=== PATIENT | male | born 1965 | race Caucasian/White ===

== ENCOUNTER 2019-11-18 18:33 | Emergency (ER) | payer SELFPAY ==
[2019-11-18 18:40] VITALS: BP 180/87; PULSE 113; RESP 19; TEMP 36.6; O2SAT 97
--- NOTE | 2019-11-18 18:44 | ED.SKABFB ---
HPI - Skin/Abscess/Foreign Bdy General Chief complaint: Skin/Abscess/Foreign Body Stated complaint: dog bite wrist/wound Time Seen by Provider: 11/18/19 18:44 History of Present Illness HPI narrative: Bitten on the right wrist by a dog about 10 days ago. Initially just a small puncture wound. Since that time he has developed an ulcerated area around the wound. There is has been a small amount of drainage. He has mild pain with pressure to the wound. No pain with movement of the wrist or hand. Related Data Allergies Allergy/AdvReac Type Severity Reaction Status Date / Time No Known Allergies Allergy Verified 11/18/19 18:45 Review of Systems Review of Systems: All systems reviewed & are unremarkable except as noted in HPI and below Constitutional: Constitutional: Denies chills and Denies fever(s) Cardiovascular: Cardiovascular: Denies chest pain Respiratory: Respiratory: Denies dyspnea Integumentary/Breasts: Skin/Breast: Reports skin ulcer Neurologic: Denies numbness and Denies weakness [facility] Social History Social History (Updated 11/18/19 @ 18:56 by Teddy Andres MD) Smoking status: Never smoker Exam Const: General: no acute distress and alert Nutritional Appearance: obese Orientation/consciousness: patient oriented x3 HENMT: Head: normal to inspection Resp: Effort & Inspection: normal respiratory effort Skin: Other: 2x2 cm ulcer to lateral right wrist. Mild purulent discharge Neuro: General: patient oriented x3, moves all extremities and no focal motor deficits Speech: normal speech Other: Motor and sensory intact Course Vital Signs Vital signs: Vital Signs Temperature 36.6 C 11/18/19 18:40 Pulse Rate 113 H 11/18/19 18:40 Respiratory Rate 19 11/18/19 18:40 Blood Pressure 180/87 H 11/18/19 18:40 Pulse Oximetry 97 11/18/19 18:40 Temperature 37.1 C 11/18/19 19:32 Pulse Rate 98 11/18/19 19:32 Respiratory Rate 16 11/18/19 19:32 Blood Pressure 153/105 H 11/18/19 19:32 Pulse Oximetry 93 11/18/19 19:32 MDM - Skin/Abscess/Foreign Bdy MDM Narrative Medical decision making narrative: He likely has a mild local infection at the bite wound. No concern for septic joint. No sign of fluid collection. No systemic symptoms. Will plan to clean and dress the wound. Start antibiotics. Update tetanus. Differential Diagnosis Differential diagnosis: Likely cellulitis Discharge Plan Discharge Clinical Impression: Dog bite of right wrist Patient Disposition: Home, Self-Care Condition: Stable Instructions: Antibiotic Form, Animal Bite (ED) Prescriptions: New amoxicillin-pot clavulanate [Augmentin] 875-125 mg tablet 1 tablet PO Q12H Qty: 14 RF: 0 Follow-up/Referrals: PHYSICIAN,DIVISION FIELD INSPECTOR [Primary Care Provider] - Discharge Date/Time: 11/18/19 19:34
[2019-11-18] MEDS: AMOXICILLIN/CLAVULANATE K 875-125 MG TAB 1 TABLET PO (19:02)
[2019-11-18] MEDS: TETANUS,DIPHTHERIA,AC PERTUSSIS ADULT (0.5 ML) BOOSTRIX IM (19:02)
[2019-11-18 19:32] VITALS: BP 153/105; PULSE 98; RESP 16; TEMP 37.1; O2SAT 93
== END 2019-11-18 19:34 | disposition home or self-care (01) ==
PROVIDERS: Emergency Provider Emergency Medicine
DX: S61.551A Open bite of right wrist, initial encounter (principal); W54.0XXA Bitten by dog, initial encounter; Z23 Encounter for immunization
CPT/HCPCS: 90471; 90715; 99283; A9270

== ENCOUNTER 2025-01-09 10:00 | Emergency (ER) | payer SELFPAY ==
[2025-01-09] VITALS (7 sets, daily range): BP systolic 119–181; BP diastolic 86–109; PULSE 94–109; RESP 19–20; TEMP 36.6; O2SAT 93–97
--- NOTE | ~2025-01-09 | US_ITS ---
US abdomen limited INDICATION: Liver lesions PROCEDURE: Realtime right upper abdominal ultrasound. COMPARISON: No prior studies for comparison. FINDINGS: The pancreas is normal without focal mass or pancreatic ductal dilation. There is a liver cyst measuring 2.6 cm. There is fatty infiltration of the liver. There is normal directional flow in the portal vein. The gallbladder is normal without stones, gallbladder wall thickening or pericholecystic fluid. Common bile duct measures 6.6 mm. No sonographic Neely's sign. IMPRESSION: 1: Fatty infiltration of the liver. Reviewed, dictated and finalized at location O.
--- NOTE | ~2025-01-09 | XR_ITS ---
EXAMINATION: XR chest 2V, 01/09/2025 10:45 CDT HISTORY: PT STATES MIDSTERNAL CHEST PAIN X 4 DAYS AGO COMPARISON: No comparisons available. Technique: 2 views obtained. Findings: Mild pulmonary venous congestion. No pneumothorax. Heart is normal size. Mediastinal and hilar contours are within normal limits. Post sternotomy. Impression: No acute cardiopulmonary abnormality. Reviewed, dictated and finalized at location P. Impression: No acute cardiopulmonary abnormality.
--- NOTE | ~2025-01-09 | CT_ITS ---
CTA CHEST ABDOMEN PELVIS CLINICAL HISTORY: R sided chest pain . COMPARISON: X-rays today TECHNIQUE: Helical CT performed from thoracic inlet to symphysis pubis IV contrast information not listed in PACS Coronal, sagittal reformats. Multiplanar MIPS CT images acquired with automatic exposure control for dose reduction DLP: 1860 mGy-cm FINDINGS: CHEST- Thoracic Aorta: No dissection. No aneurysm. Pulmonary arteries: Normal caliber. No PE. Lungs/Pleura: Minimal emphysema. Heart: Unremarkable. Tracheobronchial tree: Patent. Nodes: No enlarged nodes. Bones: No acute bony abnormality. Soft tissues: Unremarkable. ABDOMEN/PELVIS- CTA Abdominal aorta: No aneurysm or dissection. Common iliac arteries: Patent. External iliac arteries: Patent. Hypogastric arteries: Patent. CFAs: Patent. Proximal visualized SFAs and profundas: Patent. Celiac: Patent. Moderate common hepatic artery stenosis SMA: Patent. PAOLA: Patent. Renal arteries: Patent. NON-CTA Liver: Steatosis. A few hypodense lesions. Gallbladder: Unremarkable. Spleen: Unremarkable. Pancreas: Unremarkable. Adrenal glands: Unremarkable. Kidneys: Right kidney- No hydronephrosis. No renal stones. Cyst. Additional tiny probable cyst. Left kidney- No hydronephrosis. No renal stones. Small cyst. Distal esophagus/stomach: Unremarkable. Small bowel loops: Normal caliber and wall thickness. Colon: Areas of apparent wall thickening but under distended. Normal RLQ appendix. A few diverticula. Nodes: No enlarged nodes. Peritoneum: No ascites. No free air. Urinary bladder: 9 mm stone right UVJ. Prostate: Unremarkable. Bones: No acute bony abnormality. Soft tissues: Left lateral abdominal wall hernia between rectus muscles containing colon. IMPRESSION: CHEST- 1. No acute cardiopulmonary findings. ABDOMEN/PELVIS- 1. No acute abdominopelvic findings. 2. At least 2 liver lesions, indeterminate. Recommend ultrasound and/or CT or MRI liver protocol. Reviewed, dictated and finalized at location R.
--- NOTE | 2025-01-09 10:02 | ECG_ITS ---
Test Date: 2025-01-09 10:07:32 Measurements Intervals [place] Rate: 109 P: 26 NH: 165 QRS: 69 QRSD: 78 T: 53 QT: 310 QTc: 419 Interpretive Statements SINUS TACHYCARDIA WITH FREQUENT SUPRAVENTRICULAR PREMATURE COMPLEXES LOW QRS VOLTAGE IN PRECORDIAL LEADS BORDERLINE T WAVE ABNORMALITY- INF/HIGH LAT LEADS BASELINE ARTIFACT- I, II, III, AVR, AVL, AVF, V1-V6 ABNORMAL ECG No previous ECG available for comparison Electronically Signed On 01-09-2025 10:29:51 CDT by Yong Love D.O.
[2025-01-09] MEDS: ASPIRIN 81 MG CHEWABLE TABLET 324 MG PO (10:16)
[2025-01-09 10:18] LABS: Hematocrit 51.0 % (42.0-52.0); Hemoglobin 16.5 g/dL (14.0-18.0); Immature Granulocyte Percent A 0.5 % (0-0.5); Lymphocytes Absolute Auto 2.53 K/mm3 (0.9-3.2); Mean Corpuscular HGB Conc 32.4 g/dl (32-36); Mean Corpuscular Hemoglobin 32.9 pg (26-34); Mean Corpuscular Volume 101.8 fl (80-100); Nucleated Red Blood Cells Absolute Auto 0.000 K/mm3 (0.0-0.012); Nucleated Red Blood Cells Perc 0.0 % (0.0-0.2); Platelet Count Result 252 k/mm3 (150-375); Red Blood Count 5.01 M/mm3 (4.6-6.20); White Blood Count 13.9 K/mm3 (4.5-10.0)
[2025-01-09] MEDS: HYDROmorphone HCL INJ (*CRX) 1 MG/ML SYR 0.5 MG IV PUSH (10:27)
[2025-01-09 10:28] LABS: INR 1.1; Prothrombin Time 14.4 Seconds (11.1-14.7)
[2025-01-09 10:29] LABS: Partial Thromboplastin Time 32.1 Seconds (22.3-36.8)
--- NOTE | 2025-01-09 10:42 | ED_ITS ---
HPI - General Adult General Chief complaint: Chest Pain Stated complaint: chest pain Time Seen by Provider: 01/09/25 10:09 History of Present Illness HPI narrative: This is a 59-year-old male presenting ED with chief complaint of chest pain. Chest pain started 3 days ago. Is on the right/center portion of his chest. Pain is sharp and worse with deep inspirations, There are no provoking factors. It is nonradiating. It is severe in intensity. It comes in waves. He has never had pain like this in the past. Patient and his son have most had a diarrheal illness over last several days. Related Data Allergies Allergy/AdvReac Type Severity Reaction Status Date / Time No Known Allergies Allergy Verified 01/09/25 10:10 [facility] Social History Social History (Updated 11/18/19 @ 18:56 by Teddy Andres MD) Smoking status: Never smoker Exam 2 Narrative: APPEARANCE: No apparent distress. Head: atraumatic. EYES: EOMI, NOSE: Atraumatic NECK: Trachea midline RESPIRATORY: No increased rate of breathing clear to auscultation CARDIOVASCULAR: RRR, no reproducible chest wall pain, no peripheral edema ABDOMINAL: Non-distended soft nontender MUSCULOSKELETAl: No obvious deformities NEURO: Alert. Moving 4/4 extremities SKIN:: Warm, dry. Normal color PSYCHIATRIC: Normal affect Course Vital Signs Vital signs: Vital Signs Temperature 97.8 F 01/09/25 10:04 Pulse Rate 109 H 01/09/25 10:04 Respiratory Rate 19 01/09/25 10:04 Blood Pressure 181/106 H 01/09/25 10:04 Pulse Oximetry 97 01/09/25 10:04 Oxygen Delivery Room Air 01/09/25 10:04 Temperature 97.8 F 01/09/25 10:04 Pulse Rate 105 H 01/09/25 10:11 Respiratory Rate 19 01/09/25 10:04 Blood Pressure 181/106 H 01/09/25 10:04 Pulse Oximetry 97 01/09/25 10:12 Oxygen Delivery Room Air 01/09/25 10:12 Medical Decision Making [facility] [place] Narrative Medical decision making narrative: -Course: 59-year-old male presenting with right-sided pleuritic pain. Broad workup including troponins, EKG CTA chest abdomen pelvis and right upper quadrant ultrasound were performed and all were negative. White count was mildly elevated at 13.9 although he has been having a diarrheal illness. No evidence of pneumonia. Vital signs are stable. He initially received Dilaudid with some improvement but then received Toradol later in his workup with significant improvement in his pain. Presentation most consistent with pleurisy. Patient be discharged on NSAIDs. Given primary care follow-up and return precautions. -DDX includes but is not limited to: ACS pneumonia PE pleurisy pericarditis viral syndrome Vital Signs Vital Signs: Vital Signs Temperature 97.8 F 01/09/25 10:04 Pulse Rate 109 H 01/09/25 10:04 Respiratory Rate 19 01/09/25 10:04 Blood Pressure 181/106 H 01/09/25 10:04 Pulse Oximetry 97 01/09/25 10:04 Oxygen Delivery Room Air 01/09/25 10:04 Temperature 97.8 F 01/09/25 10:04 Pulse Rate 105 H 01/09/25 10:11 Respiratory Rate 19 01/09/25 10:04 Blood Pressure 181/106 H 01/09/25 10:04 Pulse Oximetry 97 01/09/25 10:12 Oxygen Delivery Room Air 01/09/25 10:12 Lab Data 01/09/25 10:12 Labs: Lab Results 01/09/25 01/09/25 Range/Units 10:12 10:24 WBC 13.9 H (4.5-10.0) K/mm3 RBC 5.01 (4.6-6.20) M/mm3 Hgb 16.5 (14.0-18.0) g/dL Hct 51.0 (42.0-52.0) % MCV 101.8 H (80-100) fl MCH 32.9 (26-34) pg MCHC 32.4 (32-36) g/dl RDW 13.0 (11.5-14.5) % Plt Count 252 (150-375) k/mm3 MPV 9.4 (7.4-10.4) fl Immature Gran % (Auto) 0.5 (0-0.5) % Neut % (Auto) 70.6 (45.5-73.1) % Lymph % (Auto) 18.2 L (18.3-44.2) % [place] % (Auto) 8.8 H (2.6-8.5) % Eos % (Auto) 1.1 (0-4.4) % Baso % (Auto) 0.8 (0.2-1.2) % Lymph # (Auto) 2.53 (0.9-3.2) K/mm3 [place] # (Auto) 1.2 H (0.1-0.6) K/mm3 Eos # (Auto) 0.2 (0-0.3) K/mm3 Baso # (Auto) 0.1 (0.0-0.1) K/mm3 Abs Immat Gran (auto) 0.07 H (0.00-0.031) K/mm3 Absolute Neuts (auto) 9.8 H (1.3-6.7) K/mm3 Absolute Nucleated RBC 0.000 (0.0-0.012) K/mm3 Nucleated RBC % 0.0 (0.0-0.2) % PT 14.4 (11.1-14.7) Seconds INR 1.1 APTT 32.1 (22.3-36.8) Seconds D-Dimer 0.58 H (<0.48) ug/mL Sodium Pending Potassium Pending Chloride Pending Carbon Dioxide Pending Anion Gap Pending BUN Pending Creatinine Pending Estim Creat Clear Calc Pending Estimated GFR Pending Glucose Pending Calcium Pending Total Bilirubin Pending AST Pending ALT Pending Alkaline Phosphatase Pending Troponin I Pending NT-Pro-B Natriuret Pep Pending Total Protein Pending Albumin Pending Lipase Pending Influenza A (RT-PCR) Pending Influenza B (RT-PCR) Pending RSV (RT-PCR) Pending SARS-CoV-2 RNA (RT-PCR) Pending Discharge Plan Discharge Clinical Impression: Pleurisy Patient Disposition: Home Condition: Stable Instructions: Antibiotic Form, Pleurisy (ED) Additional Instructions: You were seen in the emergency department for chest pain. I believe this is pleurisy which is inflammation of your lung lining. Please use Motrin and Tylenol every 8 hours until your symptoms improve. Please follow-up with your primary care physician for further management. If you develop any new or worsening symptoms such as severe chest pain difficulty breathing or fevers please return to the ED re-evaluation. Patient Language: Slovenian Prescriptions: New ibuprofen 800 mg tablet 800 mg PO TID PRN (Reason: pain) 7 Days Qty: 21 0RF acetaminophen 500 mg tablet 1,000 mg PO TID PRN (Reason: kj) 7 Days Qty: 42 0RF No Action amoxicillin-pot clavulanate [Augmentin] 875-125 mg tablet 1 tablet PO Q12H Qty: 14 0RF Follow-up/Referrals: PHYSICIAN,MANAGER SOLUTION [Primary Care Provider, Internal Medicine] Julio Rothman MD [Physician, Family Practice] - 1 Week
[2025-01-09 10:45] LABS: Alanine Aminotransferase 32 U/L (6-50); Albumin Level 4.4 g/dL (3.5-5.1); Alkaline Phosphatase 59 U/L (38-126); Anion Gap 13 mmol/L (4-12); Aspartate Amino Transferase 28 U/L (17-59); Bilirubin,Total 0.8 mg/dL (0.2-1.3); Blood Urea Nitrogen 15 mg/dL (9-20); Calcium 9.3 mg/dL (8.4-10.2); Carbon Dioxide 25 mmol/L (22-30); Chloride 99 mmol/L (98-107); Estimated CRCL calculation 90 ml/min; Estimated Glomerular Filt Rate > 60; Glucose 136 mg/dL (65-110); Lipase 55 U/L (23-300); Potassium 4.0 mmol/L (3.4-5.0); Sodium 137 mmol/L (137-145); Total Protein 8.7 g/dL (6.3-8.2)
--- OUTSIDE RECORDS SUMMARY | 2025-01-09 10:52 | XMS_ITS | Clinical Summary ---
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 Gender Identity Not on file Sexual Orientation Not on file Obstetrics History Last Filed Vital Signs Vital Sign Reading Time Taken Comments Blood Pressure 138/84 09/25/2018 10:30 AM CDT Pulse 100 09/25/2018 10:30 AM CDT Temperature 37 C (98.6 F) 09/25/2018 10:30 AM CDT Respiratory Rate 22 09/25/2018 10:30 AM CDT Oxygen Saturation 94% 09/25/2018 10:30 AM CDT Inhaled Oxygen Concentration - - Weight 137.4 kg (303 lb) 09/25/2018 10:30 AM CDT Height 177.8 cm (5' 10) 09/25/2018 10:30 AM CDT Body Mass Index 43.48 09/25/2018 10:30 AM CDT Plan of Treatment Not on file Care Teams Blind Hanger Relationship Specialty Start Date End Date No, Physician PCP - General 09/25/18
[2025-01-09 10:56] LABS: NT Pro B Type Natriuretic Pept 77 pg/mL (19.9-100); Troponin I < 0.012 ng/mL (0.000-0.034)
[2025-01-09 11:08] LABS: Influenza A QL RT-PCR Negative (Negative); Influenza B QL RT-PCR Negative (Negative); RSV RNA, RT-PCR Negative (Negative); SARS-CoV-2 RNA PCR Negative (Negative)
--- OUTSIDE RECORDS SUMMARY | 2025-01-09 11:38 | XMS_ITS | Clinical Summary ---
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
--- NOTE | 2025-01-09 13:00 | ECG_ITS ---
Test Date: 2025-01-09 13:30:53 Measurements Intervals [place] Rate: 94 P: 3 RI: 160 QRS: 33 QRSD: 97 T: 60 QT: 355 QTc: 446 Interpretive Statements SINUS RHYTHM INCOMPLETE RIGHT BUNDLE BRANCH BLOCK LOW QRS VOLTAGE IN PRECORDIAL LEADS CONSIDER INFERIOR INFARCT, AGE INDETERMINATE BORDERLINE T WAVE ABNORMALITY- ANTEROLAT/HIGH LAT LEADS BASELINE ARTIFACT- I, III, AVR, AVL, AVF ABNORMAL ECG Compared to ECG 01/09/2025 10:07:32 HEART RATE HAS DECREASED Electronically Signed On 01-09-2025 13:56:53 CDT by Yong Love D.O.
[2025-01-09 13:28] LABS: Troponin I < 0.012 ng/mL (0.000-0.034)
[2025-01-09] MEDS: KETOROLAC 15 MG/ML VIAL (*BKC) IV PUSH (13:34)
== END 2025-01-09 15:08 | disposition home or self-care (01) ==
PROVIDERS: Emergency Provider Emergency Medicine
DX: R09.1 Pleurisy (principal); R00.0 Tachycardia, unspecified; I49.1 Atrial premature depolarization; R94.31 Abnormal electrocardiogram [ECG] [EKG]; I45.10 Unspecified right bundle-branch block
CPT/HCPCS: 36415; 71046; 71275; 74174; 76705; 80053; 83690; 83880; 84484; 85025; 85380; 85610; 85730; 87637; 93005; 96374; 96375; 99284; A9270; J1171; J1885; Q9967